=== PATIENT | female | born 1995 | race Two or more races ===

== ENCOUNTER 2017-04-24 17:19 | Emergency (ER) | payer SELFPAY ==
[~2017-04-24] VITALS: Ht 170.2 cm; Wt 52.2 kg
[2017-04-24 17:28] VITALS: BP 135/74
[2017-04-24] MEDS ORDERED: IBUPROFEN 600 MG TABLET PO ONE ×2 (17:48→18:00)
[2017-04-24] MEDS ORDERED: HYDROCODONE/APAP 5/325MG 1 EACH TABLET ONE (19:10)
[2017-04-24] MEDS ORDERED: HYDROCODONE/APAP 5/325MG 1 EACH TABLET PO ONE (19:30)
== END 2017-04-24 19:17 | disposition home or self-care (01) ==
LOC: ER 17:24
DX: S82.841A Displaced bimalleolar fracture of right lower leg, initial encounter for closed fracture (principal); V00.141A Fall from scooter (nonmotorized), initial encounter; X50.1XXA Overexertion from prolonged static or awkward postures, initial encounter; Y93.55 Activity, bike riding; Y92.89 Other specified places as the place of occurrence of the external cause; Y99.8 Other external cause status
CPT/HCPCS: 29515; 73564; 73610; 99284; A4606; Z7610